=== PATIENT | female | born 1995 | race Two or more races ===

== ENCOUNTER 2017-03-13 18:50 | Emergency (ER) | payer BC, MEDICAID ==
--- NOTE | 2017-03-13 19:53 | RADIOLOGY REPORT (SQ) ---
EXAM DESCRIPTION: TOE LEFT COMPLETED DATE/TIME: 03/13/2017 7:32 pm REASON FOR STUDY: STUBBED TOES COMPARISON: None. NUMBER OF VIEWS: Two views. TECHNIQUE: AP oblique images acquired of the left toes. LIMITATIONS: No lateral view. FINDINGS: MINERALIZATION: Normal. BONES: No acute fracture or dislocation. No worrisome bone lesions. JOINTS: No effusions. SOFT TISSUES: No soft tissue swelling. No foreign body. OTHER: No other significant finding. IMPRESSION: No acute fracture noted. Limited by lack of lateral view. COMMENT: SITE OF TRAUMA/COMPLAINT MARKED/STAMP COMPLETED: No TECHNICAL DOCUMENTATION: JOB ID: [id number] [employer]- All Rights Reserved
--- NOTE | 2017-03-13 20:15 | ER Document Report ---
ED Extremity Problem, Lower - General Chief Complaint: Toe Injury Stated Complaint: INJURY TO LEFT PINKY TOE Time Seen by Provider: 03/13/17 19:39 Mode of Arrival: Ambulatory Information source: Patient Notes: Patient is a 21-year-old female who presents to the ER today for left foot and toe pain to the fourth and fifth toes after stubbing it on a wall prior to arrival today. She denies any numbness or tingling, states that the pain is a throbbing pain. She denies any lacerations. She denies falling. TRAVEL OUTSIDE OF THE [place] IN LAST 30 DAYS: No - Related Data Allergies/Adverse Reactions: No Known Allergies Allergy (Verified 03/13/17 18:53) Past Medical History - General Information source: Patient - Social History Smoking Status: Unknown if Ever Smoked Chew tobacco use (# tins/day): No Frequency of alcohol use: None Drug Abuse: None Family History: Reviewed & Not Pertinent Renal/ Medical History: Denies: Hx Peritoneal Dialysis - Immunizations Hx Diphtheria, Pertussis, Tetanus Vaccination: Yes - already received Review of Systems - Review of Systems Constitutional: No symptoms reported EENT: No symptoms reported Cardiovascular: No symptoms reported Respiratory: No symptoms reported Gastrointestinal: No symptoms reported Genitourinary: No symptoms reported Female Genitourinary: No symptoms reported Musculoskeletal: See HPI Skin: No symptoms reported Hematologic/Lymphatic: No symptoms reported Neurological/Psychological: No symptoms reported Physical Exam - Vital signs Vitals: Temp Pulse Resp BP Pulse Ox 98.4 F 83 16 126/83 H 100 03/13/17 18:54 03/13/17 18:54 03/13/17 18:54 03/13/17 18:54 03/13/17 18:54 - Notes Notes: PHYSICAL EXAMINATION: GENERAL: Well-appearing and in no acute distress. HEAD: Atraumatic, normocephalic. EYES: Pupils equal round and reactive to light, extraocular movements intact, sclera anicteric, conjunctiva are normal. ENT: ear canals without erythema or foreign body, TMs pearly hyde with good bony landmarks, nares patent, oropharynx clear without exudates. Moist mucous membranes. NECK: Normal range of motion, supple without lymphadenopathy LUNGS: CTAB and equal. No wheezes rales or rhonchi. HEART: Regular rate and rhythm without murmurs ABDOMEN: Soft, no tenderness. No guarding, no rebound BACK: no vertebral tenderness, normal ROM GI/: no CVA tenderness EXTREMITIES: tender to lateral plantar surface of left foot, tender to 4th and 5th digits, Normal range of motion, no pitting edema. No cyanosis. NEUROLOGICAL: Cranial nerves grossly intact. Normal sensory/motor exams. PSYCH: Normal mood, normal affect. SKIN: Warm, Dry, normal turgor, no rashes or lesions noted Course - Re-evaluation Re-evalutation: 03/13/17 20:18 x ray negative for any acute fracture or pathology, pt requests juan wrap, was obliged. - Vital Signs Vital signs: Temp Pulse Resp BP Pulse Ox 98 F 80 16 122/76 100 03/13/17 20:55 03/13/17 20:55 03/13/17 20:55 03/13/17 20:55 03/13/17 20:55 Discharge - Discharge Clinical Impression: Foot pain, left Toe injury Qualifiers: Encounter type: initial encounter Laterality: left Qualified Code(s): S99.922A - Unspecified injury of left foot, initial encounter Condition: Stable Disposition: HOME, SELF-CARE Additional Instructions: Return immediately for any new or worsening symptoms. Follow up with primary care provider, call tomorrow to make followup appointment. Forms: Return to Work
[2017-03-13 20:57] VITALS: BP 122/76
== END 2017-03-13 20:55 | disposition home or self-care (01) ==
LOC: ER 18:50
DX: S99.922A Unspecified injury of left foot, initial encounter (principal); W22.01XA Walked into wall, initial encounter
CPT/HCPCS: 99283

== ENCOUNTER → 2018-08-03 | Outpatient (CLI) | payer BC ==
--- NOTE | 2018-08-03 17:32 | Non Stress Test Report ---
Non Stress Test Datetime Report Generated by CPN: 08/03/2018 17:31 DEMOGRAPHIC EGA NST: 34.6 INDICATION Indication for Study: Ordered by Provider VITAL SIGNS Temperature - NST: 98.2 Pulse - NST: 101 RESP - NST: 17 NBPSYS NST: 105 NBPDIA NST: 58 MONITORING Monitor Explained: Monitor Explained; Test Explained; Patient Verbalized Understanding Time on Monitor: 08/03/2018 16:47 Time off Monitor: 08/03/2018 17:16 NST Duration: 29 NST INTERVENTIONS NST Interventions: PO Hydration; Reposition Patient Physician Notified NST: N Bermudez CNM BABY A: [id number] BABY A Movement : Present Contraction Frequency : denies FHR Baseline : 135 Accelerations : 15X15 Decelerations : None Variability : Moderate 6-25bpm NST Review: Meets Criteria for Reactive NST NST Review and Verified By : BAYRON Duff NST Results: Reactive NST REPORT Report Trigger: Send Report
== END ==
LOC: LC 16:36
PROVIDERS: ATTEND Obstetrics & Gynecology
PROC: 4A1HXCZ Monitoring of Products of Conception, Cardiac Rate, External Approach (ICD-10-PCS; principal; 2018-08-03)
DX: Z34.93 Encounter for supervision of normal pregnancy, unspecified, third trimester (principal)
CPT/HCPCS: 59025

== ENCOUNTER 2018-08-18 16:51 | Outpatient (CLI) | payer BC ==
[2018-08-18 17:26] LABS: APPEARANCE,URINE CLOUDY; BILIRUBIN,URINE NEGATIVE (NEGATIVE); COLOR,URINE YELLOW; GLUCOSE, URINE NEGATIVE (NEGATIVE); KETONES,URINE 20 mg/dL (NEGATIVE); LEUKOCYTE ESTERASE,URINE LARGE (NEGATIVE); NITRITE,URINE NEGATIVE (NEGATIVE); PROTEIN,URINE NEGATIVE (NEGATIVE); URINE SPECIFIC GRAVITY 1.008; UROBILINOGEN,URINE NEGATIVE mg/dL (<2.0)
[2018-08-18] MEDS ORDERED: PENICILLIN G-K 5 MILLION UNIT VIAL ONE (17:35)
[2018-08-18 17:59] LABS: URINE AMPHETAMINES SCREEN NEGATIVE; URINE BARBITURATES SCREEN NEGATIVE; URINE BENZODIAZEPINES SCREEN NEGATIVE; URINE COCAINE SCREEN NEGATIVE; URINE MARIJUANA (THC) SCREEN NEGATIVE; URINE METHADONE SCREEN NEGATIVE; URINE PHENCYCLIDINE SCREEN NEGATIVE
--- NOTE | 2018-08-18 18:43 | Non Stress Test Report ---
Non Stress Test Datetime Report Generated by CPN: 08/18/2018 18:43 DEMOGRAPHIC EGA NST: 37.0 INDICATION Indication for Study: Other Indication for Study (NST) Other: LC URINE RESULTS Urine Glucose - NST: Positive Urine Blood - NST: Positive MONITORING Monitor Explained: Monitor Explained; Test Explained; Patient Verbalized Understanding Time on Monitor: 08/18/2018 17:06 Time off Monitor: 08/18/2018 18:27 NST Duration: 81 NST INTERVENTIONS NST Interventions: PO Hydration Physician Notified NST: Dr. Pantoja BABY A: [id number] BABY A Movement : Present Contraction Frequency : 3-7 FHR Baseline : 135 Accelerations : 15X15 Decelerations : None Variability : Moderate 6-25bpm NST Review: Meets Criteria for Reactive NST NST Review and Verified By : BAYRON Duff NST Results: Reactive NST REPORT Report Trigger: Send Report
[2018-08-18] MEDS ORDERED: PENICILLIN G POTASSIUM 5,000,000 UNIT in DEXTROSE 5%-WATER 100 ML IV ONE (19:49)
--- NOTE | 2018-08-18 21:11 | Non Stress Test Report ---
Non Stress Test Datetime Report Generated by CPN: 08/18/2018 21:11 DEMOGRAPHIC EGA NST: 37.0 INDICATION Indication for Study: Ordered by Provider URINE RESULTS Urine Protein, NST: Negative Urine Ketones - NST: Positive Urine Glucose - NST: Negative Urine Blood - NST: Negative MONITORING Monitor Explained: Monitor Explained; Test Explained; Patient Verbalized Understanding Time on Monitor: 08/18/2018 19:39 Time off Monitor: 08/18/2018 20:17 NST Duration: 38 NST INTERVENTIONS NST Interventions: PO Hydration; IV Fluids Physician Notified NST: Dr. Pantoja BABY A Movement : Present Contraction Frequency : Irregular FHR Baseline : 135 Accelerations : 15X15 Decelerations : None Variability : Moderate 6-25bpm NST Review: Meets Criteria for Reactive NST NST Review and Verified By : Isatu Hamlin RN NSMatt Results: Reactive NST REPORT Report Trigger: Send Report
== END 2018-08-18 20:27 | disposition home or self-care (01) ==
LOC: LC 16:51
PROVIDERS: ATTEND Student in an Organized Health Care Education/Training Program
DX: O36.8390 Maternal care for abnormalities of the fetal heart rate or rhythm, unspecified trimester, not applicable or unspecified (principal); Z3A.37 37 weeks gestation of pregnancy; Z87.891 Personal history of nicotine dependence
CPT/HCPCS: 59025; 81005; 80307; J2540

== ENCOUNTER 2018-09-04 06:44 | Inpatient (IN) | payer BC ==
[2018-09-04] MEDS ORDERED: PENICILLIN G POTASSIUM 5,000,000 UNIT in DEXTROSE 5%-WATER 100 ML IV ONE (06:48)
[2018-09-04] MEDS ORDERED: OXYTOCIN/NORMAL SALINE 20 UNIT/1,000 ML RTUINJ IV PRN ×2 (06:51→12:41)
[2018-09-04] MEDS ORDERED: RINGERS SOLUTION,LACTATED 300 ML IV ONE (06:51)
[2018-09-04 07:35] LABS: ABSOLUTE LYMPHOCYTES (AUTO) 1.8 10^3/uL (0.5-4.7); ABSOLUTE MONOCYTES (AUTO) 0.8 10^3/uL (0.1-1.4); ABSOLUTE NEUT (AUTO) 7.6 10^3/uL (1.7-8.2); BASOPHILS % (AUTO) 0.5 % (0-2); EOSINOPHILS % (AUTO) 0.2 % (0-6); HEMATOCRIT 30.3 % (36.0-47.0); LYMPHOCYTES % (AUTO) 17.7 % (13-45); MEAN CORPUSCULAR HEMOGLOBIN 27.8 pg (27.0-33.4); MEAN CORPUSCULAR HGB CONC 33.1 g/dL (32.0-36.0); MEAN CORPUSCULAR VOLUME 84 fl (80-97); MONOCYTES % (AUTO) 7.7 % (3-13); PLATELET COUNT 228 10^3/uL (150-450); RED CELL DISTRIBUTION WIDTH 16.8 % (11.5-14.0); SEGMENTED NEUTROPHILS % (AUTO) 73.9 % (42-78); TOTAL CELLS COUNTED % (AUTO) 100 %; WHITE BLOOD COUNT 10.2 10^3/uL (4.0-10.5)
[2018-09-04 07:45] LABS: APPEARANCE,URINE CLOUDY; BILIRUBIN,URINE NEGATIVE (NEGATIVE); COLOR,URINE YELLOW; GLUCOSE, URINE NEGATIVE (NEGATIVE); KETONES,URINE NEGATIVE (NEGATIVE); LEUKOCYTE ESTERASE,URINE LARGE (NEGATIVE); NITRITE,URINE NEGATIVE (NEGATIVE); PROTEIN,URINE 30 mg/dL (NEGATIVE); URINE SPECIFIC GRAVITY 1.021
[2018-09-04] MEDS ORDERED: LIDOCAINE 1% INJ-PF (10 MG/ML) 30 ML SDV ONE (08:01)
[2018-09-04] MEDS ORDERED: OXYTOCIN 10 UNIT/ML VIAL ONE (08:01)
[2018-09-04] MEDS ORDERED: MISOPROSTOL 0.2 MG TABLET ONE (08:01)
[2018-09-04] MEDS ORDERED: OXYTOCIN/NORMAL SALINE 20 UNIT/1,000 ML RTUINJ ONE (08:02)
[2018-09-04] MEDS ORDERED: PENICILLIN G-K 5 MILLION UNIT VIAL ONE ×2 (08:02→11:17)
[2018-09-04 08:07] LABS: URINE AMPHETAMINES SCREEN NEGATIVE; URINE BARBITURATES SCREEN NEGATIVE; URINE BENZODIAZEPINES SCREEN NEGATIVE; URINE COCAINE SCREEN NEGATIVE; URINE METHADONE SCREEN NEGATIVE; URINE PHENCYCLIDINE SCREEN NEGATIVE
[2018-09-04] MEDS: RINGERS SOLUTION,LACTATED 1,000 ML IV PRN ×2 (08:13→11:41)
[2018-09-04 08:20] LABS: URINE MARIJUANA (THC) SCREEN UNCONFIRMED POSITIVE
--- NOTE | 2018-09-04 08:49 | Admission Physical ---
Datetime Report Generated by CPN: 09/04/2018 08:49 CURRENT ADMISSION Chief Complaint: Scheduled Induction of Labor Indication for Induction: Macrosomia; Other Admit Impression : No Active Labor; Induction of Labor Admit Plan: Initiate Labor Induction Protocol ALLERGIES Medication Allergies: No Medication Allergies: No Known Allergies (08/18/2018) Latex: No Latex Allergies Food Allergies: none Environmental Allergies: none OBSTETRICAL HISTORY EDC: 09/08/2018 00:00 : 2 Para: 1 Term: 1 : 0 SAB: 0 IAB: 0 Ectopic: 0 Livin Cesareans: 0 VBACs: 0 Multiple Births: 0 Gestational Diabetes: No Rh Sensitization: No Incompetent Cervix: No SASCHA: No Infertility: No ART Treatment: No Uterine Anomaly: No IUGR: No Hx Previous C/S: No Macrosomia: Yes Hx Loss/Stillborn: No PIH: No Hx : No Placenta Previa/Abruption: No Depression/PP Depression: Yes PTL/PROM: No Post Hemorrhage: No Current Procedures: Ultrasound; NST Obstetrical History Comments: G1- 40 weeks 7# 5 oz PPD G2- current macrosomia SEE RECORDS Alcohol: No Marijuana : No Cocaine: No Other Illicit Drugs: No Cigarettes: Former Smoker. 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 Heart Disease: Yes Hosp/Surgery: Yes Autoimmune Disorder: No Anesthetic Complications: No Kidney Disease: No Abnormal Pap Smear: Yes Neuro/Epilepsy: No Psychiatric Disorders: No Other Medical Diseases: No Hepatitis/Liver Disease: No Significant Family History: No Varicosities/Phlebitis: No Trauma/Violence : No Thyroid Dysfunction: No Medical History Comments: depression, mitral valve regurgitation, bacterial endocarditis 11 years old, 2013 colpo performed, 2017-abnormal pap with no f/u, childbirth 2013 INFECTIOUS HISTORY Gonorrhea: No Genital Herpes: No Chlamydia: No Tuberculosis: No Syphilis: No Hepatitis: No HIV/AIDS Exposure: No Rash or Viral Illness: No HPV: No Infectious History Comments: +trich this per pt PHYSICAL EXAM General: Normal HEENT: Normal Neurologic: Normal Thyroid: Deferred Heart: Normal Lungs: Normal Breast: Deferred Back: Deferred Abdomen: Normal Genitourinary Exam: Normal Extremities: Normal DTRs: Deferred Pelvic Type: Adequate Physical Exam Comments: cervical exam upon AROM last check Vital Signs: Reviewed FETUS A EGA: 39.3 Monitoring: External US FHR- Baseline: 145 Variability: Moderate 6-25bpm Accelerations: 15X15 Decelerations: None FHR Category: Category I Estimated Weight (gm): 9lbs Admit Comment: GBS +, plan AROM prior to second dose abx plans epidural PLANS FOR LABOR AND DELIVERY Labor and Delivery: Other, Specify Pain Management: Epidural Feeding Preference: Breast Benefit of Breast Feed Discussed: Yes Circumcision: Yes INFORMED CONSENT Assignment: Keara Shaw MD Signature: with User ID: [email or web address] : with User ID: [email or web address]
[2018-09-04] MEDS ORDERED: PENICILLIN G POTASSIUM 2,500,000 UNIT in DEXTROSE 5%-WATER 50 ML IV SCH (10:49)
[2018-09-04] MEDS ORDERED: EPHEDRINE SULFATE INJ 50 MG/1 ML AMPULE ONE (11:08)
[2018-09-04] MEDS ORDERED: FENTANYL/BUPIVACAINE/NS/PF 300 MCG/150 ML RTUINJ EPI ONE (11:09)
[2018-09-04] MEDS ORDERED: BUPIVACAINE HCL 0.25 % INJ/PF (2.5 MG/1 ML) 30 ML VIAL ONE (11:09)
[2018-09-04] MEDS ORDERED: DIBUCAINE 1% OINTMENT 56 GM TP PRN (12:41)
[2018-09-04] MEDS ORDERED: DIPH/PERTUSS(ACELL)/TETANUS VAC/PF 0.5 ML SYR (>=10YO) IM PRN (12:41)
[2018-09-04] MEDS ORDERED: ACETAMINOPHEN WITH CODEINE #3 TABLET PO PRN (12:41)
[2018-09-04] MEDS ORDERED: BENZOCAINE/MENTHOL AEROSOL SPRAY 56 ML TOP PRN (12:41)
[2018-09-04] MEDS ORDERED: ZOLPIDEM TARTRATE 5 MG TABLET PO PRN (12:41)
[2018-09-04] MEDS ORDERED: IBUPROFEN 800 MG TABLET ONE (13:13)
[2018-09-04] MEDS: IBUPROFEN 800 MG TABLET PO SCH ×2 (13:15→22:01)
--- NOTE | 2018-09-04 15:26 | Warning Signs in Babies ---
VOD Warning Signs Datetime Report Generated by [facility]: 09/04/2018 15:26 VOD#608 -Warning Signs in Babies: Viewed with Parent(s)/Family (09/04/2018 15:00:Stacy Riley RN)
[2018-09-04] MEDS: FERROUS SULFATE 325 MG TABLET PO SCH (17:51)
[2018-09-04] MEDS: DOCUSATE SODIUM 100 MG CAPSULE PO SCH (17:51)
[2018-09-04] MEDS: ACETAMINOPHEN WITH CODEINE #3 TABLET PO PRN (20:57)
[2018-09-05] MEDS: ACETAMINOPHEN WITH CODEINE #3 TABLET PO PRN ×2 (02:09→07:40)
[2018-09-05] MEDS: IBUPROFEN 800 MG TABLET PO SCH ×3 (05:23→22:13)
[2018-09-05 08:20] LABS: HEMATOCRIT 30.6 % (36.0-47.0); HEMOGLOBIN 9.9 g/dL (12.0-15.5); MEAN CORPUSCULAR HEMOGLOBIN 27.1 pg (27.0-33.4); MEAN CORPUSCULAR HGB CONC 32.2 g/dL (32.0-36.0); MEAN CORPUSCULAR VOLUME 84 fl (80-97); PLATELET COUNT 202 10^3/uL (150-450); RED BLOOD COUNT 3.65 10^6/uL (3.72-5.28); WHITE BLOOD COUNT 11.3 10^3/uL (4.0-10.5)
[2018-09-05] MEDS: FERROUS SULFATE 325 MG TABLET PO SCH ×2 (09:09→17:05)
[2018-09-05] MEDS: DOCUSATE SODIUM 100 MG CAPSULE PO SCH ×2 (09:09→17:04)
[2018-09-05] MEDS: PRENATAL VITAMIN W DHA CAPSULE PO SCH (09:09)
[2018-09-05] MEDS: SENNOSIDES/DOCUSATE 8.6-50 MG 1 EACH TABLET PO SCH (09:09)
--- NOTE | 2018-09-05 09:21 | PDOC PROGRESS REPORT ---
Subjective-OB Progress Note for:: 09/05/18 Subjective: Doing well, no c/o, , ambulating Physical Exam (OB) Vital Signs: Temp Pulse Resp BP Pulse Ox 98.1 F 74 17 114/73 99 09/05/18 07:56 09/05/18 07:56 09/05/18 07:56 09/05/18 07:56 09/05/18 07:56 Intake & Output 09/04/18 09/05/18 09/06/18 06:59 06:59 06:59 Intake Total 583 Balance 583 Weight 88 kg - PIH/Pre-Eclampsia Clonus: Negative Headache: Absent Epigastric Pain: No Visual Changes: No - Lochia Lochia Amount: Scant < 10 ml Lochia Color: Rubra/Red - Abdomen Description: Soft Hernia Present: No Fundal Description: Firm Fundal Height: u/u - u/2 Objective-Diagnostic Laboratory: 09/05/18 08:00 09/05/18 08:00 WBC 11.3 H RBC 3.65 L Hgb 9.9 L Hct 30.6 L MCV 84 MCH 27.1 MCHC 32.2 RDW 17.0 H Plt Count 202 Assessment and Plan(PN) - Assessment and Plan (1) GBS (group B Streptococcus carrier), +RV culture, currently Is this a current diagnosis for this admission?: Yes - Time Spent with Patient Time with patient: Less than 15 minutes Medications reviewed and adjusted accordingly: Yes - Disposition Anticipated Discharge: Home Within: within 24 hours
[2018-09-06] MEDS: ACETAMINOPHEN WITH CODEINE #3 TABLET PO PRN (03:43)
[2018-09-06] MEDS: IBUPROFEN 800 MG TABLET PO SCH (06:04)
[2018-09-06 08:03] VITALS: BP 122/80
[2018-09-06] MEDS: DOCUSATE SODIUM 100 MG CAPSULE PO SCH (09:14)
[2018-09-06] MEDS: PRENATAL VITAMIN W DHA CAPSULE PO SCH (09:14)
[2018-09-06] MEDS: FERROUS SULFATE 325 MG TABLET PO SCH (09:14)
[2018-09-06] MEDS: SENNOSIDES/DOCUSATE 8.6-50 MG 1 EACH TABLET PO SCH (09:14)
--- NOTE | 2018-09-06 10:15 | PDOC PROGRESS REPORT ---
Subjective-OB Progress Note for:: 09/06/18 Subjective: Ready to go home. Physical Exam (OB) Vital Signs: Temp Pulse Resp BP Pulse Ox 97.6 F 76 16 122/80 100 09/06/18 07:44 09/06/18 07:44 09/06/18 07:44 09/06/18 07:44 09/06/18 07:44 Intake & Output 09/05/18 09/06/18 09/07/18 06:59 06:59 06:59 Intake Total 583 300 Balance 583 300 Weight 88 kg - PIH/Pre-Eclampsia DTR's: 2 + Clonus: Negative Headache: Absent Epigastric Pain: No Visual Changes: No - Lochia Lochia Amount: Scant < 10 ml Lochia Color: Rubra/Red - Abdomen Description: Soft Hernia Present: No Bowel Sounds: Normoactive Flatus Presence: Present Stool: Yes Fundal Description: Firm, Midline Fundal Height: u/u - u/2 Objective-Diagnostic Laboratory: 09/05/18 08:00 Assessment and Plan(PN) - Time Spent with Patient Medications reviewed and adjusted accordingly: Yes - Disposition Anticipated Discharge: Home
--- NOTE | 2018-09-06 10:21 | PDOC DISCHARGE SUMMARY ---
Final Diagnosis Discharge Date: 09/06/18 - Final Diagnosis (1) Anemia Is this a current diagnosis for this admission?: Yes (2) Delivery normal Is this a current diagnosis for this admission?: Yes (3) Drug abuse Is this a current diagnosis for this admission?: Yes (4) GBS (group B Streptococcus carrier), +RV culture, currently Is this a current diagnosis for this admission?: Yes Discharge Data - Discharge Medication Prescriptions: Ferrous Sulfate [Feosol 325 mg Tablet] 325 mg PO BID #60 tablet Home Medications: No.137/Iron/Folic Acd [ Vitamin Tablet] 1 tab PO DAILY 06/04/14 Ferrous Sulfate [Feosol 325 mg Tablet] 325 mg PO BID #60 tablet 09/06/18 Gestational Age: 39.3 wks Reason(s) for Admission: Induction of Labor Procedures: Ultrasound Intrapartum Procedure(s): Spontaneous Vaginal Delivery Complication(s): Laceration-Vaginal Laceration-Degree: 2nd - [place] Data Baby 1 Male at 1 minute: 9 at 5 minutes: 9 Weight: 3.912 kg Home with Mother: Yes Complications: No - Diagnosis Test Laboratory: Temp Pulse Resp BP Pulse Ox 97.6 F 76 16 122/80 100 09/06/18 07:44 09/06/18 07:44 09/06/18 07:44 09/06/18 07:44 09/06/18 07:44 09/04/18 09/04/18 09/05/18 07:05 07:15 08:00 RBC 3.60 L 3.65 L Hgb 10.0 L 9.9 L Hct 30.3 L 30.6 L Urine Opiates Screen NEGATIVE - Discharge information/Instructions Discharge Activity: Activity As Tolerated, Balance Activity w/Rest, Pelvic Rest, Slowly Increase Activity, No tub bath Discharge Diet: Regular Disposition: HOME, SELF-CARE Follow up with: [facility] in: 4, Weeks
--- NOTE | 2018-09-12 10:51 | Delivery Summary ---
Del Sum A-C Datetime Report Generated by CPN: 09/12/2018 10:50 DELIVERY PERSONNEL DELIVERY PERSONNEL: [id number] Delivery Doctor:: Sarina Davis CNM Nurse Merchandise Presentation Associate Certified:: Sarina Davis CNM Labor and Delivery Nurse:: PRIMITIVO Bullard Labor and Delivery Nurse:: PRIMITIVO Moulton Nursery Nurse:: BAYRON Morales/MEDICAL EDUCATION MANAGER: Mahendra Sexton, PIECER UP MATERNAL INFORMATION Delivery Anesthesia: Epidural Medications After Delivery: Pitocin Drip 20 Units/1000ml NSS Meds After Delivery Comment: Pitocin 20 units in 1000 ml nss open for bolus Maternal Complications: None Provider Comments: SVDVM over 2*perineal laceration. CLAIR with compound Lt hand and loop of cord under the chin. Delivery of Posterior arm, then ant shoulder, body delivered easily. Cord clamped after 2 min, cut per FOB. 3VC noted. placenta intact via cortes with trailing membranes. FF immediately, bleeding stabilized. Mother and stable. Laceration repaired. LABOR SUMMARY EDC: 09/08/2018 00:00 No. Babies in Womb: 1 Attempted: No Labor Anesthesia: Epidural LABOR INFORMATION Reason for Induction: Macrosomia Onset of Labor: 09/04/2018 08:15 Complete Dilatation: 09/04/2018 11:00 Oxytocin: Augmentation Group B Beta Strep: positive Antibiotics # of Doses: 2 Antibiotics Time of Last Dose: Penicillin Name of Antibiotic Given: 1141 Steroids Given: None Reason Steroids Not Administered: Not Applicable MEMBRANES Membranes Rupture Method: Artificial Rupture of Membranes: 09/04/2018 10:55 Length of Rupture (hr): 1.42 Amniotic Fluid Color: Clear Amniotic Fluid Amount: Scant Amniotic Fluid Odor: Normal STAGES OF LABOR Stage 1 hr: 2 Stage 1 min: 45 Stage 2 hr: 1 Stage 2 min: 20 Stage 3 hr: 0 Stage 3 min: 7 Total Time in Labor hr: 4 Total Time in Labor min: 12 VAGINAL DELIVERY Episiotomy: None Laceration #1: Perineal Laceration Extension #1: Second Degree Laceration Repair: Yes Laceration Repair Note: 3.0 chromic for 2*perineal repair Lidocaine used Sponge Count Correct: N/A Sharps Count Correct: N/A CSECTION DELIVERY Primary Indication: N/A Secondary Indication: N/A CSection Incidence: N/A Labor: N/A Elective: N/A CSection Incision: N/A BABY A INFORMATION Delivery Date/Time: 09/04/2018 12:20 Method of Delivery: Vaginal Born in Route : No : N/A Forceps: N/A Vacuum Extraction: N/A Shoulder Dystocia : No PRESENTATION/POSITION BABY A Presentation: Cephalic Presentation: Cephalic Presentation: Cephalic Cephalic Presentation: Vertex Vertex Position: Left Occipital Anterior Breech Presentation: N/A PLACENTA INFORMATION BABY A Placenta Delivery Time : 09/04/2018 12:27 Placenta Method of Delivery: Spontaneous Placenta Status: Delivered SCORES BABY A Heart Rate 1 min: >100 bpm Resp Effort 1 min: Good Cry Reflex Irritability 1 min: Cough or Sneeze or Pulls Away Muscle Tone 1 min: Active Motion Color 1 min: Body [place], Extremities Blue Resuscitation Effort 1 min: Tactile Stimulation SCORE 1 MIN: 9 Heart Rate 5 min: >100 bpm Resp Effort 5 min: Good Cry Reflex Irritability 5 min: Cough or Sneeze or Pulls Away Muscle Tone 5 min: Active Motion Color 5 min: Body [place], Extremities Blue Resuscitation Effort 5 min: N/A SCORE 5 MIN: 9 Resuscitation Effort 10 min: N/A INFORMATION BABY A Gestational Age at Delivery: 39.3 Gestational Status: Full Term- 39- 40.6 Weeks Outcome : Liveborn Infant Condition : Stable Sex: Male IDENTIFICATION BABY A Verification Date/Time: 09/04/2018 15:19 ID Band Number: [id number] RN Verifying Infant: Rosemary, S Additional Verifying Personnel: Darshan, T WEIGHT/LENGTH BABY A Infant Birthweight (gm): 3901 Infant Weight (lb): 8 Weight (oz): 10 Infant Length (in): 21.00 Length (cm): 53.34 CORD INFORMATION BABY A No. Cord Vessels: 3 Nuchal Cord : N/A Nuchal Cord- Other: loop under chin Cord Blood Taken: Yes-For Storage (Mom's Blood type +) Infant Suction: None ASSESSMENT BABY A Complications: Multiple Variable Decels Physical Findings at Delivery: Within Normal Limits Infant Respirations: Appears Normal Skin to Skin: Yes Skin to Skin: Yes Skin to Skin: Yes Skin to Skin Time (min): 60 Property Damage Claims Adjustor/ALS Called : No Care By: H Uday RN BABY B INFORMATION : N/A SIGNATURES Assignment: Keara Shaw MD Signature: with User ID: [email or web address] : with User ID: [email or web address] : I was personally available for consultation and serving as supervising physician for the MLP. : I was personally available for consultation and serving as supervising physician for the MLP.
== END 2018-09-06 12:55 | disposition home or self-care (01) | DRG 806 ==
LOC: LR 06:44 → 2S 16:00
PROVIDERS: ADMIT Obstetrics & Gynecology; ATTEND Obstetrics & Gynecology
PROC: 10E0XZZ Delivery of Products of Conception, External Approach (ICD-10-PCS; principal; 2018-09-04)
PROC: 0KQM0ZZ Repair Perineum Muscle, Open Approach (ICD-10-PCS; 2018-09-04)
DX: O36.63X0 Maternal care for excessive fetal growth, third trimester, not applicable or unspecified (principal); O99.324 Drug use complicating childbirth; Z37.0 Single live birth; O99.824 Streptococcus B carrier state complicating childbirth; O69.89X0 Labor and delivery complicated by other cord complications, not applicable or unspecified; O76 Abnormality in fetal heart rate and rhythm complicating labor and delivery; O70.1 Second degree perineal laceration during delivery; O32.6XX0 Maternal care for compound presentation, not applicable or unspecified; F12.90 Cannabis use, unspecified, uncomplicated; Z3A.39 39 weeks gestation of pregnancy
CPT/HCPCS: 36415; 80307; 80349; 81005; 85025; 85027; 86592; 86850; 86900; 86901; G0480; J2540; J2590; J3010; J3490